=== PATIENT | male | born 1955 | race Two or more races ===

== ENCOUNTER → 2021-06-08 08:00 | Outpatient (CLI) | payer OTHER ==
[~2021-06-08] VITALS: Ht 182.9 cm; Wt 142.9 kg
[~2021-06-08 08:00] MED LIST: AVAPRO300 MG PO; CLONIDINE1 EAC2 TD; LASIX20 MG PO; NIFEDIPINE20 MG PO; TOPROL XL25 M1 PO
== END | disposition home or self-care (01) ==
LOC: LAB 08:00 → SURH 06-12 05:20 → O/R 06-12 05:20 → SURH 06-12 07:15 → EDSTATUS 06-12 07:15 → SURH 06-12 10:15
PROVIDERS: ATTEND Orthopaedic Surgery
DX: D68.9 Coagulation defect, unspecified (principal); E78.2 Mixed hyperlipidemia; N39.0 Urinary tract infection, site not specified; I10 Essential (primary) hypertension; R07.9 Chest pain, unspecified; Z03.818 Encounter for observation for suspected exposure to other biological agents ruled out

== ENCOUNTER 2021-06-12 08:47 | Emergency (ER) | payer OTHER ==
[~2021-06-12] VITALS: Ht 182.9 cm; Wt 147.4 kg
== END 2021-06-12 13:19 | disposition home or self-care (01) ==
LOC: ER 08:47
DX: I10 Essential (primary) hypertension (principal); Z88.6 Allergy status to analgesic agent